=== PATIENT | female | born 1965 | race Caucasian/White ===

== ENCOUNTER 2018-07-31 11:09 | Inpatient (IN) | payer MEDICARE, OTHER ==
[~2018-07-31] VITALS: Ht 157.5 cm; Wt 95.5 kg
[~2018-07-31 11:09] MED LIST: ARIP15TA3 PO; ASPI-1264 PO; BACL20TA84 PO; FERR325T28 PO; IBUP-1984 PO; LEVO25TA2 PO; LORA1TAB PO; METH-603 PO; MONT10TA21 PO; NORCO10T PO; NORE1TAB4 PO; OMEP-84 PO; SIMV20TA5 PO; SIN25C PO; WEL100T PO
[2018-07-31 11:57] LABS: BASOPHILS # (AUTO) 0.1 X10'3 (0-0.2); BASOPHILS % (AUTO) 1.2 % (0-1); EOSINOPHILS # (AUTO) 0.1 X10'3 (0-0.9); EOSINOPHILS % (AUTO) 0.8 % (0-6); HEMATOCRIT 37.6 % (35.0-45.0); HEMOGLOBIN 12.5 g/dl (12.0-16.0); LYMPHOCYTES # (AUTO) 0.4 X10'3 (1.1-4.8); MEAN CORPUSCULAR HEMOGLOBIN 31.5 PG (27.0-31.0); MEAN CORPUSCULAR HGB CONC 33.4 % (33.0-36.5); MEAN CORPUSCULAR VOLUME 94.5 FL (78-98); MEAN PLATELET VOLUME 9.3 FL (7.4-10.4); MONOCYTES # (AUTO) 0.3 X10'3 (0-0.9); MONOCYTES % (AUTO) 4.4 % (2-12); NEUTROPHILS # (AUTO) 6.1 X10'3 (1.8-7.7); NEUTROPHILS % (AUTO) 87.6 % (42-75); PLATELET COUNT 169 X10'3 (140-440); RED BLOOD COUNT 3.98 X10'6 (4.20-5.60); RED CELL DISTRIBUTION WIDTH 13.8 % (11.5-14.5)
[2018-07-31 12:13] LABS: INR 1.1 INR; PARTIAL THROMBOPLASTIN TIME 34 SECONDS (22-32); PROTHROMBIN TIME 11.4 SECONDS (9.0-12.0)
[2018-07-31 12:20] LABS: ALANINE AMINOTRANSFERASE 27 U/L (12-78); ALBUMIN 3.6 G/DL (3.4-5.0); ALBUMIN/GLOBULIN RATIO 1.1 (1.1-1.5); ALKALINE PHOSPHATASE 91 IU/L (46-116); ANION GAP 12 (8-16); ASPARTATE AMINO TRANSFERASE 42 U/L (10-37); BILIRUBIN,TOTAL 0.5 MG/DL (0.1-1.0); BLOOD UREA NITROGEN 14 MG/DL (7-18); BUN/CREATININE RATIO 15.4 (6.6-38.0); CALCIUM 8.7 MG/DL (8.5-10.1); CHLORIDE 101 MMOL/L (99-107); CREATININE 0.91 MG/DL (0.40-0.90); GLUCOSE 126 MG/DL (70-104); MAGNESIUM 1.5 MG/DL (1.5-2.4); PHOSPHORUS 1.9 MG/DL (2.3-4.5); SODIUM 139 MMOL/L (135-145); TOTAL CARBON DIOXIDE 25.6 MMOL/L (24-32); TOTAL PROTEIN 6.8 G/DL (6.4-8.2); eGFR 65 ML/MIN
[2018-07-31 12:24] LABS: POTASSIUM 2.7 MMOL/L (3.5-5.1)
[2018-07-31] MEDS ORDERED: potassium Cl 20 mEq SR tablet PO STA (12:28)
[2018-07-31] MEDS ORDERED: potassium 10mEq/100ml NS w/LIDOcaine (10mg/bag) IV ONE (12:30)
[2018-07-31 12:59] LABS: CLARITY,URINE CLOUDY (Clear); COLOR,URINE YELLOW (Yellow); GLUCOSE, URINE NEGATIVE (Neg); KETONES,URINE NEGATIVE (Neg); LEUKOCYTE ESTERASE ,URINE NEGATIVE (Neg); NITRITES, URINE POSITIVE (Neg); OCCULT BLOOD,URINE TRACE-INTACT (Neg); PROTEIN,URINE NEGATIVE (Neg); UROBILINOGEN,URINE >=8.0 E.U/dL (0.2-1.0)
[2018-07-31 13:03] LABS: UA COLLECTION TYPE CLN CATCH MIDSTREAM; URINE AMPHETAMINE SCREEN NEGATIVE (Neg); URINE BARBITUATE SCREEN NEGATIVE (Neg); URINE BENZODIAZEPINES SCREEN NEGATIVE (Neg); URINE CANNABINOID SCREEN POSITIVE (Neg); URINE COCAINE SCREEN NEGATIVE (Neg); URINE METHADONE SCREEN NEGATIVE (Neg); URINE OPIATE SCREEN POSITIVE (Neg); URINE PHENCYCLIDINE SCREEN NEGATIVE (Neg)
[2018-07-31 13:04] LABS: BACTERIA,URINE 4+ /HPF (Neg); MUCUS STRANDS NONE SEEN /LPF (Neg); RBC,URINE 0-2 /HPF (0-2); SQUAMOUS EPITHELIAL CELL,UR FEW /LPF (FEW); WBC,URINE 20-30 /HPF (0-4)
[2018-07-31] MEDS ORDERED: levoFLOXACIN-Levaquin 750MG/D5 150 ML IV ONE (14:10)
[2018-07-31] MEDS ORDERED: mag hydrox/Alum hydrox/simeth 30ml oral suspension PO PRN (14:15)
[2018-07-31] MEDS ORDERED: magnesium hydroxide 30ml (MOM) UD suspension PO PRN (14:15)
[2018-07-31] MEDS ORDERED: acetaminophen 325mg tablet PO PRN ×2 (14:15)
[2018-07-31] MEDS ORDERED: ondansetron/PF 4mg/2ml inj IV PRN (14:15)
[2018-07-31] MEDS ORDERED: magnesium Cl slow-release 64mg tablet PO PRN (14:15)
[2018-07-31] MEDS ORDERED: potassium Cl 40MEQ/NS 500ml 500 ML IV PRN ×2 (14:15)
[2018-07-31] MEDS ORDERED: magnesium 4gm in 100ml NS 100 ML IV PRN (14:15)
[2018-07-31] MEDS ORDERED: potassium Cl 20 mEq SR tablet PO PRN ×2 (14:15)
[2018-07-31] MEDS: normal saline 1000ml 1,000 ML IV SCH ×2 (14:35→20:33)
[2018-07-31] MEDS: CefTRIAXone/D5W-Rocephin 1gm 50 ML IV SCH (14:53)
[2018-07-31] MEDS ORDERED: oseltamivir phos 75mg capsule PO SCH (16:00)
[2018-07-31] MEDS ORDERED: METH-350 PO (17:04)
[2018-07-31] MEDS ORDERED: METH20TA40 PO (17:04)
[2018-07-31] MEDS ORDERED: NABU500T2 PO (17:04)
[2018-07-31] MEDS ORDERED: PREG100C PO (17:04)
[2018-07-31] MEDS ORDERED: LORazepam 1 MG tablet PO PRN (17:15)
[2018-07-31] MEDS: HYDROcodone/acetaminophen 10/325mg tab PO PRN (18:34)
[2018-07-31 19:15] VITALS: BP 113/52
[2018-07-31 19:23] LABS: ALBUMIN 3.3 G/DL (3.4-5.0); ANION GAP 13 (8-16); BLOOD UREA NITROGEN 11 MG/DL (7-18); BUN/CREATININE RATIO 12.2 (6.6-38.0); CALCIUM 8.8 MG/DL (8.5-10.1); CHLORIDE 102 MMOL/L (99-107); GLUCOSE 117 MG/DL (70-104); POTASSIUM 3.5 MMOL/L (3.5-5.1); SODIUM 139 MMOL/L (135-145); TOTAL CARBON DIOXIDE 24.3 MMOL/L (24-32); eGFR 66 ML/MIN
[2018-07-31] MEDS: oseltamivir phos 75mg capsule PO SCH (20:00)
[2018-07-31] MEDS ORDERED: oseltamivir 30mg capsule PO SCH (20:00)
[2018-07-31] MEDS: methadone 10mg tablet PO SCH (20:33)
[2018-07-31] MEDS ORDERED: doxepin 25mg capsule PO SCH (21:00)
[2018-07-31 22:00] VITALS: BP_SYST 89; BP_SYST 94; BP_DIAS 42
[2018-07-31] MEDS ORDERED: pneumococcal 23-VAL P-sac vacc 25 mcg/0.5ml vial IMVAC ONE (22:25)
[2018-08-01] VITALS (13 sets, daily range): BP systolic 80–159; BP diastolic 42–91
[2018-08-01 01:09] LABS: BASOPHILS % (AUTO) 0.1 % (0-1); EOSINOPHILS % (AUTO) 0.1 % (0-6); HEMATOCRIT 33.8 % (35.0-45.0); HEMOGLOBIN 11.6 g/dl (12.0-16.0); LYMPHOCYTES % (AUTO) 16.1 % (21-51); MEAN CORPUSCULAR HEMOGLOBIN 32.3 PG (27.0-31.0); MEAN CORPUSCULAR HGB CONC 34.3 % (33.0-36.5); MEAN CORPUSCULAR VOLUME 94.3 FL (78-98); MEAN PLATELET VOLUME 9.8 FL (7.4-10.4); MONOCYTES # (AUTO) 0.4 X10'3 (0-0.9); MONOCYTES % (AUTO) 7.1 % (2-12); NEUTROPHILS # (AUTO) 4.8 X10'3 (1.8-7.7); NEUTROPHILS % (AUTO) 76.6 % (42-75); PLATELET COUNT 167 X10'3 (140-440); RED BLOOD COUNT 3.59 X10'6 (4.20-5.60); WHITE BLOOD COUNT 6.2 X10'3 (4.5-11.0)
[2018-08-01 01:13] LABS: ALANINE AMINOTRANSFERASE 25 U/L (12-78); ALBUMIN 2.9 G/DL (3.4-5.0); ALBUMIN/GLOBULIN RATIO 0.9 (1.1-1.5); ALKALINE PHOSPHATASE 68 IU/L (46-116); ANION GAP 8 (8-16); ASPARTATE AMINO TRANSFERASE 35 U/L (10-37); BILIRUBIN,TOTAL 0.3 MG/DL (0.1-1.0); BLOOD UREA NITROGEN 15 MG/DL (7-18); BUN/CREATININE RATIO 18.5 (6.6-38.0); CALCIUM 8.5 MG/DL (8.5-10.1); CHLORIDE 105 MMOL/L (99-107); CREATININE 0.81 MG/DL (0.40-0.90); GLUCOSE 110 MG/DL (70-104); POTASSIUM 3.5 MMOL/L (3.5-5.1); SODIUM 139 MMOL/L (135-145); TOTAL CARBON DIOXIDE 26.4 MMOL/L (24-32); TOTAL PROTEIN 6.1 G/DL (6.4-8.2); eGFR 74 ML/MIN
[2018-08-01 01:17] LABS: CHOL/HDL RATIO 1.7 (0.00-4.99); CHOLESTEROL 97 MG/DL (0-200); HDL CHOLESTEROL 58 MG/DL (35-60); LDL CHOLESTEROL 33 MG/DL (50-100); MAGNESIUM 1.9 MG/DL (1.5-2.4); PHOSPHORUS 2.3 MG/DL (2.3-4.5); TRIGLYCERIDES 52 MG/DL (20-135)
[2018-08-01] MEDS: normal saline 1000ml 1,000 ML IV SCH ×2 (03:00→15:48)
[2018-08-01] MEDS ORDERED: ARIPIPRAZOLE PO SCH (08:00)
[2018-08-01] MEDS: K and/or MAG REPLACEMENT MC SCH (08:00)
[2018-08-01] MEDS ORDERED: levoFLOXACIN-Levaquin 500mg/D5 100 ML IV SCH (08:00)
[2018-08-01] MEDS: montelukast 10mg tablet PO SCH (09:40)
[2018-08-01] MEDS: buPROPion 75mg tablet PO SCH ×2 (09:40→20:44)
[2018-08-01] MEDS: aspirin 325mg tablet PO SCH (09:40)
[2018-08-01] MEDS: levoTHYROXINE 75mcg tablet PO SCH (09:40)
[2018-08-01] MEDS: aripiprazole 5mg tablet PO SCH (09:40)
[2018-08-01] MEDS: CefTRIAXone/D5W-Rocephin 1gm 50 ML IV SCH (09:41)
[2018-08-01] MEDS: oseltamivir phos 75mg capsule PO SCH ×2 (09:41→20:44)
[2018-08-01] MEDS: methadone 10mg tablet PO SCH ×2 (10:20→20:44)
[2018-08-01] MEDS ORDERED: CLON0.5T23 PO (16:12)
[2018-08-01] MEDS: HYDROcodone/acetaminophen 10/325mg tab PO PRN (16:47)
[2018-08-01] MEDS: lactobacillus rhamnosus 10,000 MMU CELLS/CAPSULE PO SCH (20:44)
[2018-08-01] MEDS: enoxaparin 40mg/0.4ml syringe SUBCUT SCH (20:44)
[2018-08-02 02:00] VITALS: BP 97/54
[2018-08-02 05:00] VITALS: BP 104/71
[2018-08-02 06:11] LABS: BASOPHILS % (AUTO) 0.4 % (0-1); EOSINOPHILS % (AUTO) 1.1 % (0-6); HEMATOCRIT 33.6 % (35.0-45.0); HEMOGLOBIN 11.2 g/dl (12.0-16.0); LYMPHOCYTES # (AUTO) 1.3 X10'3 (1.1-4.8); LYMPHOCYTES % (AUTO) 34.3 % (21-51); MEAN CORPUSCULAR HEMOGLOBIN 31.7 PG (27.0-31.0); MEAN CORPUSCULAR HGB CONC 33.3 % (33.0-36.5); MEAN CORPUSCULAR VOLUME 95.2 FL (78-98); MEAN PLATELET VOLUME 9.5 FL (7.4-10.4); MONOCYTES # (AUTO) 0.2 X10'3 (0-0.9); NEUTROPHILS # (AUTO) 2.3 X10'3 (1.8-7.7); NEUTROPHILS % (AUTO) 58.2 % (42-75); PLATELET COUNT 160 X10'3 (140-440); RED BLOOD COUNT 3.53 X10'6 (4.20-5.60); RED CELL DISTRIBUTION WIDTH 14.1 % (11.5-14.5); WHITE BLOOD COUNT 3.9 X10'3 (4.5-11.0)
[2018-08-02 06:39] LABS: ALANINE AMINOTRANSFERASE 25 U/L (12-78); ALBUMIN 2.9 G/DL (3.4-5.0); ALKALINE PHOSPHATASE 60 IU/L (46-116); ANION GAP 9 (8-16); ASPARTATE AMINO TRANSFERASE 30 U/L (10-37); BILIRUBIN,TOTAL 0.2 MG/DL (0.1-1.0); BLOOD UREA NITROGEN 13 MG/DL (7-18); BUN/CREATININE RATIO 16.5 (6.6-38.0); CALCIUM 8.4 MG/DL (8.5-10.1); CHLORIDE 108 MMOL/L (99-107); CREATININE 0.79 MG/DL (0.40-0.90); GLUCOSE 80 MG/DL (70-104); MAGNESIUM 1.9 MG/DL (1.5-2.4); PHOSPHORUS 2.6 MG/DL (2.3-4.5); POTASSIUM 3.7 MMOL/L (3.5-5.1); SODIUM 142 MMOL/L (135-145); TOTAL PROTEIN 5.9 G/DL (6.4-8.2); eGFR 76 ML/MIN
[2018-08-02] MEDS: K and/or MAG REPLACEMENT MC SCH (08:00)
[2018-08-02] MEDS: levoTHYROXINE 75mcg tablet PO SCH (08:30)
[2018-08-02] MEDS: aspirin 325mg tablet PO SCH (08:30)
[2018-08-02] MEDS: lactobacillus rhamnosus 10,000 MMU CELLS/CAPSULE PO SCH (08:31)
[2018-08-02] MEDS: oseltamivir phos 75mg capsule PO SCH (08:31)
[2018-08-02] MEDS: aripiprazole 5mg tablet PO SCH (08:31)
[2018-08-02] MEDS: CefTRIAXone/D5W-Rocephin 1gm 50 ML IV SCH (08:31)
[2018-08-02] MEDS: methadone 10mg tablet PO SCH (08:31)
[2018-08-02] MEDS: buPROPion 75mg tablet PO SCH (08:31)
[2018-08-02] MEDS: montelukast 10mg tablet PO SCH (08:31)
[2018-08-02] MEDS: enoxaparin 40mg/0.4ml syringe SUBCUT SCH (08:32)
[2018-08-02] MEDS ORDERED: ALBU18HF2 INH (09:47)
[2018-08-02] MEDS ORDERED: ATRIN IH (09:47)
[2018-08-02] MEDS ORDERED: albuterol 2.5 MG/3 ML nebule NEB PRN (09:55)
[2018-08-02 10:00] VITALS: BP_SYST 105; BP_SYST 123; BP_DIAS 59; BP_DIAS 68; BP_DIAS 71
[2018-08-02] MEDS ORDERED: ipratropium/albuterol 3ml nebule NEB PRN (10:05)
[2018-08-02] MEDS ORDERED: TAM75C PO (13:57)
[2018-08-02] MEDS ORDERED: ROBDML PO (13:57)
[2018-08-02] MEDS ORDERED: CEFD300C3 PO (13:57)
[2018-08-02] MEDS ORDERED: Potassium Cl inj 20 MEQ in normal saline 1000ml 1,000 ML IV SCH (14:12)
== END 2018-08-02 16:00 | disposition home or self-care (01) | DRG 193 ==
LOC: ER 11:09 → ED HOLD 14:12 → ORTHO 4S 19:15
PROVIDERS: ADMIT Family Medicine; ATTEND Internal Medicine
DX: J09.X1 Influenza due to identified novel influenza A virus with pneumonia (principal); G93.41 Metabolic encephalopathy; N39.0 Urinary tract infection, site not specified; R47.01 Aphasia; E87.6 Hypokalemia; J18.8 Other pneumonia, unspecified organism; B96.20 Unspecified Escherichia coli [E. coli] as the cause of diseases classified elsewhere; E03.9 Hypothyroidism, unspecified; E78.00 Pure hypercholesterolemia, unspecified; T43.95XA Adverse effect of unspecified psychotropic drug, initial encounter; T40.605A Adverse effect of unspecified narcotics, initial encounter; F41.1 Generalized anxiety disorder; G47.33 Obstructive sleep apnea (adult) (pediatric); G89.4 Chronic pain syndrome; J44.9 Chronic obstructive pulmonary disease, unspecified; M54.9 Dorsalgia, unspecified; Z98.51 Tubal ligation status; Z79.890 Hormone replacement therapy; Z79.82 Long term (current) use of aspirin; Z79.899 Other long term (current) drug therapy; Z88.6 Allergy status to analgesic agent; Z88.8 Allergy status to other drugs, medicaments and biological substances; Y92.89 Other specified places as the place of occurrence of the external cause
CPT/HCPCS: 36415; 70450; 70544; 70551; 71045; 80048; 80053; 80061; 80305; 81001; 82140; 82948; 83605; 83735; 83880; 84100; 84145; 84443; 84484; 85025; 85610; 85730; 87040; 87070; 87077; 87088; 87186; 87502; 87503; 93005; 93306; 93880; 94640; 94760; 96365; 97162; 97530; 99285; G0378; J0696; J1650; J1956; J3480; J7030

== ENCOUNTER 2018-10-14 14:41 | Emergency (ER) | payer MEDICARE, MEDICAID ==
[~2018-10-14] VITALS: Ht 157.5 cm; Wt 78.6 kg
[~2018-10-14 14:41] MED LIST changes: +ALBU18HF2 INH; +ATRIN IH; +CLON0.5T23 PO; -IBUP-1984 PO; +METH20TA40 PO; +NABU500T2 PO; +PREG100C PO; +ROBDML PO; +TAM75C PO
[2018-10-14 15:10] VITALS: BP 105/52
[2018-10-14 19:57] LABS: CLARITY,URINE CLEAR (Clear); COLOR,URINE YELLOW (Yellow); GLUCOSE, URINE NEGATIVE (Neg); KETONES,URINE NEGATIVE (Neg); LEUKOCYTE ESTERASE ,URINE NEGATIVE (Neg); NITRITES, URINE NEGATIVE (Neg); OCCULT BLOOD,URINE NEGATIVE (Neg); PH,URINE 6.5 (4.8-8.0); PROTEIN,URINE NEGATIVE (Neg); UROBILINOGEN,URINE 0.2 E.U/dL (0.2-1.0)
[2018-10-14 20:05] LABS: UA COLLECTION TYPE CLN CATCH MIDSTREAM
[2018-10-14] MEDS ORDERED: ketorolac tromethamine 15mg/ml inj. IM ONE (20:30)
[2018-10-14 21:29] LABS: ALANINE AMINOTRANSFERASE 25 U/L (12-78); ALBUMIN 3.5 G/DL (3.4-5.0); ALBUMIN/GLOBULIN RATIO 1.1 (1.1-1.5); ALKALINE PHOSPHATASE 71 IU/L (46-116); ANION GAP 9 (8-16); ASPARTATE AMINO TRANSFERASE 22 U/L (10-37); BILIRUBIN,TOTAL 0.3 MG/DL (0.1-1.0); BLOOD UREA NITROGEN 25 MG/DL (7-18); BUN/CREATININE RATIO 32.5 (6.6-38.0); CALCIUM 8.8 MG/DL (8.5-10.1); CHLORIDE 103 MMOL/L (99-107); CREATININE 0.77 MG/DL (0.40-0.90); GLUCOSE 111 MG/DL (70-104); POTASSIUM 3.6 MMOL/L (3.5-5.1); SODIUM 139 MMOL/L (135-145); TOTAL PROTEIN 6.6 G/DL (6.4-8.2); eGFR 79 ML/MIN
[2018-10-14 21:46] LABS: BASOPHILS % (AUTO) 0.4 % (0-1); EOSINOPHILS # (AUTO) 0.2 X10'3 (0-0.9); EOSINOPHILS % (AUTO) 2.3 % (0-6); HEMATOCRIT 35.8 % (35.0-45.0); HEMOGLOBIN 11.8 g/dl (12.0-16.0); LYMPHOCYTES # (AUTO) 1.1 X10'3 (1.1-4.8); MEAN CORPUSCULAR HEMOGLOBIN 32.3 PG (27.0-31.0); MEAN CORPUSCULAR HGB CONC 32.9 g/dL (33.0-36.5); MONOCYTES # (AUTO) 0.4 X10'3 (0-0.9); MONOCYTES % (AUTO) 5.8 % (2-12); NEUTROPHILS # (AUTO) 4.9 X10'3 (1.8-7.7); NEUTROPHILS % (AUTO) 74.5 % (42-75); PLATELET COUNT 169 X10'3 (140-440); RED BLOOD COUNT 3.65 X10'6 (4.20-5.60); RED CELL DISTRIBUTION WIDTH 12.4 % (11.5-14.5); WHITE BLOOD COUNT 6.6 X10'3 (4.5-11.0)
== END 2018-10-14 22:30 | disposition home or self-care (01) ==
LOC: ER 14:41
DX: R10.9 Unspecified abdominal pain (principal); R50.9 Fever, unspecified; J45.909 Unspecified asthma, uncomplicated; E78.00 Pure hypercholesterolemia, unspecified; G89.29 Other chronic pain; Z98.51 Tubal ligation status; Z88.5 Allergy status to narcotic agent; Z88.8 Allergy status to other drugs, medicaments and biological substances; Z79.82 Long term (current) use of aspirin; Z79.899 Other long term (current) drug therapy
CPT/HCPCS: 36415; 80053; 81003; 85025; 96372; 99283; J1885

== ENCOUNTER 2020-12-02 16:17 | Emergency (ER) | payer MEDICARE, MEDICAID ==
[~2020-12-02] VITALS: Ht 157.5 cm; Wt 61.8 kg
[~2020-12-02 16:17] MED LIST changes: -CLON0.5T23 PO; +NABU-134 PO; -NABU500T2 PO; -NORE1TAB4 PO; -PREG100C PO; -ROBDML PO; +SIMV-42 PO; -SIMV20TA5 PO; -TAM75C PO
[2020-12-02 17:13] LABS: BASOPHILS % (AUTO) 0.5 % (0-1); EOSINOPHILS # (AUTO) 0.4 X10'3 (0-0.9); EOSINOPHILS % (AUTO) 8.8 % (0-6); HEMATOCRIT 39.2 % (35.0-45.0); LYMPHOCYTES # (AUTO) 1.4 X10'3 (1.1-4.8); LYMPHOCYTES % (AUTO) 27.6 % (21-51); MEAN CORPUSCULAR HEMOGLOBIN 31.8 PG (27.0-31.0); MEAN CORPUSCULAR HGB CONC 33.2 g/dL (33.0-36.5); MEAN CORPUSCULAR VOLUME 95.9 FL (78-98); MEAN PLATELET VOLUME 8.9 FL (7.4-10.4); MONOCYTES # (AUTO) 0.3 X10'3 (0-0.9); MONOCYTES % (AUTO) 6.7 % (2-12); NEUTROPHILS # (AUTO) 2.8 X10'3 (1.8-7.7); NEUTROPHILS % (AUTO) 56.4 % (42-75); PLATELET COUNT 232 X10'3 (140-440); RED BLOOD COUNT 4.09 X10'6 (4.20-5.60); RED CELL DISTRIBUTION WIDTH 13.8 % (11.5-14.5); WHITE BLOOD COUNT 4.9 X10'3 (4.5-11.0)
[2020-12-02] MEDS ORDERED: methylPREDNISolone sod succ 125mg/2ml vial IV ONE (17:20)
[2020-12-02] MEDS ORDERED: diphenhydrAMINE 50 mg/ml inj IV ONE (17:20)
[2020-12-02 17:35] LABS: ALANINE AMINOTRANSFERASE 26 U/L (12-78); ALBUMIN 3.4 G/DL (3.4-5.0); ALBUMIN/GLOBULIN RATIO 1.1 (1.1-1.5); ALKALINE PHOSPHATASE 123 IU/L (46-116); ANION GAP 10 (8-16); ASPARTATE AMINO TRANSFERASE 18 U/L (10-37); BILIRUBIN,TOTAL 0.2 MG/DL (0.1-1.0); BLOOD UREA NITROGEN 11 MG/DL (7-18); BUN/CREATININE RATIO 15.3 (6.6-38.0); CALCIUM 8.6 MG/DL (8.5-10.1); CHLORIDE 105 MMOL/L (99-107); CREATININE 0.72 MG/DL (0.40-0.90); POTASSIUM 3.8 MMOL/L (3.5-5.1); SODIUM 144 MMOL/L (135-145); TOTAL CARBON DIOXIDE 29.2 MMOL/L (24-32); TOTAL PROTEIN 6.6 G/DL (6.4-8.2); eGFR 84 ML/MIN
[2020-12-02 17:36] LABS: GLUCOSE 73 MG/DL (70-104)
--- NOTE | 2020-12-02 17:47 | NUR ---
PT WITH NO VISIBLE AIRWAY SWELLING
[2020-12-02] MEDS ORDERED: normal saline 1000ML IV soln IVB ONE (18:15)
[2020-12-02] MEDS ORDERED: DIPH25CA83 PO (19:22)
[2020-12-02] MEDS ORDERED: PRED20TA PO (19:22)
[2020-12-02] MEDS ORDERED: EPIN0.3P3 IM (19:22)
[2020-12-02 19:50] LABS: CLARITY,URINE SLIGHTLY CLOUDY (Clear); COLOR,URINE YELLOW (Yellow); GLUCOSE, URINE NEGATIVE (Neg); KETONES,URINE TRACE mg/dl (Neg); LEUKOCYTE ESTERASE ,URINE NEGATIVE (Neg); NITRITES, URINE NEGATIVE (Neg); OCCULT BLOOD,URINE NEGATIVE (Neg); PROTEIN,URINE NEGATIVE (Neg)
[2020-12-02 19:59] VITALS: BP 107/68
[2020-12-02 20:00] LABS: UA COLLECTION TYPE NON-SPECIFIED
[2020-12-02 20:03] LABS: BACTERIA,URINE NONE SEEN /HPF (Neg); CAL OXALATE CRYSTALS 4+ /HPF (NEGATIVE); MUCUS STRANDS FEW /LPF (Neg); RBC,URINE NONE SEEN /HPF (0-2); SQUAMOUS EPITHELIAL CELL,UR FEW /LPF (FEW); WBC,URINE 0-4 /HPF (0-4)
== END 2020-12-02 19:58 | disposition home or self-care (01) ==
LOC: ER 16:19
DX: R19.7 Diarrhea, unspecified (principal); T78.40XA Allergy, unspecified, initial encounter; R50.9 Fever, unspecified; E78.00 Pure hypercholesterolemia, unspecified; J45.909 Unspecified asthma, uncomplicated; G89.29 Other chronic pain; Z87.01 Personal history of pneumonia (recurrent); Z87.440 Personal history of urinary (tract) infections; Z98.51 Tubal ligation status; Z88.5 Allergy status to narcotic agent; Z88.8 Allergy status to other drugs, medicaments and biological substances; Z79.82 Long term (current) use of aspirin; Z79.899 Other long term (current) drug therapy; X58.XXXA Exposure to other specified factors, initial encounter
CPT/HCPCS: 36415; 71045; 80053; 81001; 84484; 85025; 93005; 96361; 96374; 96375; 99285; J1200; J2930; J7030